=== PATIENT | male | born 1970 ===

== ENCOUNTER 2018-09-09 17:10 | Emergency (ER) | payer BC ==
[2018-09-09 17:54] VITALS: RESP 18; O2SAT 97; BMI 29.0
--- NOTE | 2018-09-09 18:21 | ED PDOC ---
Arrival/HPI - General Chief Complaint: Chest Pain Time Seen by Provider: 09/09/18 17:19 Historian: Patient - History of Present Illness Narrative History of Present Illness (Text): 09/09/18 18:18 47yo male with no pmhx who present with complaint of nonproductive cough, chest congestion and chest pain with cough x 2days. He did not take any medication. Denies fever, chills, nausea, vomiting, nausea, sore throat, abdominal pain, any other complaint. Past Medical History - Provider Review Nursing Documentation Reviewed: Yes - Infectious Disease Hx of Infectious Diseases: None - Psychiatric Hx Substance Use: No Family/Social History - Physician Review Nursing Documentation Reviewed: Yes Family/Social History: Unknown Family HX Smoking Status: Never Smoked Hx Alcohol Use: No Hx Substance Use: No Allergies/Home Meds Allergies/Adverse Reactions: Allergies No Known Allergies Allergy (Verified 09/10/18 08:23) Review of Systems - Physician Review All systems were reviewed & negative as marked: Yes - Review of Systems Constitutional: Normal Eyes: Normal ENT: Normal Respiratory: Cough Cardiovascular: Chest Pain Gastrointestinal: Normal Genitourinary Male: Normal Musculoskeletal: Normal Skin: Normal Neurological: Normal Endocrine: Normal Hemo/Lymphatic: Normal Psychiatric: Normal Physical Exam Vital Signs Reviewed: Yes Vital Signs Temp Pulse Resp BP Pulse Ox 09/09/18 17:49 100.3 F H 88 18 118/74 97 Temperature: Febrile Blood Pressure: Normal Pulse: Regular Respiratory Rate: Normal Appearance: Positive for: Well-Appearing, Non-Toxic, Comfortable Pain Distress: None Mental Status: Positive for: Alert and Oriented X 3 - Systems Exam Head: Present: Atraumatic, Normocephalic Pupils: Present: PERRL Extroacular Muscles: Present: EOMI Conjunctiva: Present: Normal Mouth: Present: Moist Mucous Membranes Neck: Present: Normal Range of Motion Respiratory/Chest: Present: Clear to Auscultation, Good Air Exchange. No: Respiratory Distress, Accessory Muscle Use Cardiovascular: Present: Regular Rate and Rhythm, Normal S1, S2. No: Murmurs Abdomen: No: Tenderness, Distention, Peritoneal Signs Back: Present: Normal Inspection Upper Extremity: Present: Normal Inspection. No: Cyanosis, Edema Lower Extremity: Present: Normal Inspection. No: Edema Neurological: Present: GCS=15, CN II-XII Intact, Speech Normal Skin: Present: Warm, Dry, Normal Color. No: Rashes Psychiatric: Present: Alert, Oriented x 3, Normal Insight, Normal Concentration Medical Decision Making ED Course and Treatment: 09/11/18 00:31 Pt in ED for stated history. He was comfortable in no distress.. Chest xray - Negative Rapid flu was negative Result was DW the pt. He was treated and DC home with antitussive. referred to his PMD. - RAD Interpretation Radiology Orders: 09/09/18 17:56 CHEST TWO VIEWS (PA/LAT) [RAD] Stat Disposition/Present on Arrival - Present on Arrival Any Indicators Present on Arrival: No History of DVT/PE: No History of Uncontrolled Diabetes: No Urinary Catheter: No History of Decub. Ulcer: No History Surgical Site Infection Following: None - Disposition Have Diagnosis and Disposition been Completed?: Yes Diagnosis: Cough Disposition: HOME/ ROUTINE Disposition Time: 19:05 Patient Plan: Discharge Condition: STABLE Discharge Instructions (ExitCare): Cough in Adults Additional Instructions: Follow up with your doctor Return to ED for any or worsening symptoms Prescriptions: RX: Albuterol HFA [Ventolin HFA 90 mcg/actuation (8 g)] 2 puff IH [id number] #1 puff RX: Promethazine [Phenergan Syrup] 6.25 mg PO Q6 #118 ml Referrals: Shanna Al MD [Medical Doctor] - Follow up with primary Forms: [facility] ([place])
--- NOTE | 2018-09-09 18:46 | RAD ---
HISTORY: cough COMPARISON: None available. TECHNIQUE: Chest PA and lateral FINDINGS: Examination limited by habitus. LUNGS: No focal consolidation. Please note that chest x-ray has limited sensitivity for the detection of pulmonary masses. PLEURA: No significant pleural effusion identified. No definite pneumothorax . CARDIOVASCULAR: Heart size appears within normal limits. Atherosclerotic calcifications. OSSEOUS STRUCTURES: No acute osseous abnormality identified. VISUALIZED UPPER ABDOMEN: Unremarkable. OTHER FINDINGS: None. IMPRESSION: No focal consolidation.
[2018-09-09] MEDS ORDERED: Promethazine DM 6.25 mg-15 mg/5 ml Syrup PO STA (19:01)
[2018-09-09 23:10] VITALS: BP 120/73; PULSE 80; TEMP 99.5
--- NOTE | 2018-09-10 13:44 | CARD ---
APPROVED REPORT Date of service: 09/09/2018 EKG Measurement Heart [id number] ID [id number] <Conclusion> Normal sinus rhythm Possible Left atrial enlargement Right superior axis deviation Pulmonary disease pattern Septal infarct, age undetermined Abnormal ECG
== END 2018-09-09 19:05 | disposition home or self-care (01) ==
LOC: ED 17:10 → MERGE 17:10 → ED 19:05
DX: R05 Cough (principal)